=== PATIENT | male | born 1965 | race Caucasian/White ===

== ENCOUNTER 2020-12-27 18:03 | Outpatient (REF) | payer MEDICAID, SELFPAY ==
[2020-12-27 22:30] LABS: Calculated LDL 160 mg/dL (<100); Cholesterol 289 mg/dL (<200); HDL Cholesterol 49 mg/dL (40-60); Triglyceride 400 mg/dL (<150)
[2020-12-28 18:54] LABS: PSA, Screening 0.6 ng/mL (0.0-3.5)
== END 2020-12-27 18:04 | disposition home or self-care (01) ==
LOC: NCHCN 18:03
PROVIDERS: Visit Provider Nurse Practitioner Community Health
DX: Z13.220 Encounter for screening for lipoid disorders (principal); Z12.5 Encounter for screening for malignant neoplasm of prostate
CPT/HCPCS: 80061; 84153

== ENCOUNTER 2022-04-25 21:10 | Outpatient (REF) | payer MEDICAID, SELFPAY ==
[2022-04-25 21:34] LABS: Abs Immature Grans 0.03 10^3/uL (0.0-0.06); Absolute Basophil Count 0.04 10^3/uL (0.0-0.2); Absolute Eosinophil Count 0.32 10^3/uL (0.0-0.7); Absolute Lymphocyte Count 2.49 10^3/uL (1.2-3.4); Absolute Monocyte Count 0.54 10^3/uL (0.1-0.8); Absolute Neutrophil Count 5.79 10^3/uL (1.2-6.7); Basophils % 0.4; Eosinophils % 3.5; HGB 15.8 g/dL (13.5-17.5); Immature Grans % 0.3; MCH 31.3 pg (27.0-33.0); MCHC 34.3 % (32.0-36.0); MCV 91 fL (80-95); MPV 12.8 fL (8.0-11.0); Monocytes % 5.9; Neutrophils % 62.9; Platelet Count 220 10^3/uL (130-400); RBC 5.04 10^6/uL (4.36-5.78); RDW 11.6 % (11.8-14.1); WBC 9.21 10^3/uL (4.4-10.8)
[2022-04-25 21:57] LABS: ALT 49 U/L (16-63); AST 35 U/L (15-37); Albumin 4.3 g/dL (3.4-5.0); Alkaline Phosphatase 89 U/L (46-116); Anion Gap 11.5 mmol/L (3-11); BUN 17 mg/dL (7-18); Bilirubin, Total 0.3 mg/dL (0.2-1.0); CO2 24.5 mmol/L (21.0-32.0); CREATININE 1.1 mg/dL (0.70-1.30); Calcium 9.1 mg/dL (8.5-10.1); Chloride 103 mmol/L (98-107); Glucose 131 mg/dL (74-106); Potassium 4.2 mmol/L (3.5-5.1); Sodium 139 mmol/L (136-145); Total Protein 7.7 g/dL (6.4-8.2)
== END 2022-04-25 21:11 | disposition home or self-care (01) ==
LOC: LBN 21:10
PROVIDERS: Visit Provider Nurse Practitioner Family
DX: M79.674 Pain in right toe(s) (principal)
CPT/HCPCS: 80053; 84550; 85025